=== PATIENT | female | born 1955 | race Caucasian/White ===

== ENCOUNTER 2022-01-29 15:51 | Emergency (ER) | payer OTHER, SELFPAY ==
[2022-01-29 16:00] VITALS: BP 127/70; PULSE 97; RESP 20; TEMP 37.2; O2SAT 98
--- NOTE | 2022-01-29 16:12 | ED.LOWEXIN ---
HPI - Extremity Injury (Lower) General Chief Complaint: Extremity Injury, Lower Stated Complaint: Hip and leg Pain Time Seen by Provider: 01/29/22 16:12 Source: patient and RN notes reviewed Mode of arrival: ambulatory Limitations: no limitations History of Present Illness HPI Narrative: 66-year-old female presents to the [facility] with complaints of right lower back pain that has been intermittent for the last 4 days. No treatment prior to arrival. States she has not appointment with her primary care doctor tomorrow but has no one to watch her mom. Patient denies any trauma. Pain is intermittent. Unable to reproduce pain with palpation. No midline tenderness. No loss retention of bowel or bladder. No abdominal tenderness. Patient is not wanting to take anything that will cause drowsiness because she has to care for her elderly mom day and night. Onset (ago): day(s) (4) Related Data Home Medications Medication Instructions Recorded Confirmed calcium carbonate 500 mg calcium 500 mg PO DAILY 07/29/19 01/29/22 (1,250 mg) chewable tablet loratadine 5 mg-pseudoephedrine ER 1 tablet PO Q12H 03/10/20 01/29/22 120 mg tablet,extended release,12hr (Claritin-D 12 Hour) Allergies Allergy/AdvReac Type Severity Reaction Status Date / Time hydrochlorothiazide Allergy Mild Itching Verified 01/29/22 15:56 lisinopril Allergy Mild Itching Verified 01/29/22 15:56 losartan Allergy Mild Hives Verified 01/29/22 15:56 alprazolam Allergy Unknown Unknown Verified 01/29/22 15:56 paroxetine Allergy Unknown Unknown Verified 01/29/22 15:56 Penicillins Allergy Unknown Unknown Verified 01/29/22 15:56 Sulfa (Sulfonamide Allergy Unknown Unknown Verified 01/29/22 15:56 Antibiotics) sulfamethizole Allergy Unknown Unknown Verified 01/29/22 15:56 trimethoprim Allergy Unknown Unknown Verified 01/29/22 15:56 cholecalciferol (vitamin D3) AdvReac Itching Verified 01/29/22 15:56 [From Vitamin D3] ENVIRONMENTAL ALLERGENS Allergy Unknown Unknown Uncoded 06/16/21 13:36 Review of Systems Review of Systems: All systems reviewed & are unremarkable except as noted in HPI and below Constitutional: Constitutional: Reports no additional constitutional complaints, Denies chills and Denies fever(s) Eyes: Eyes: Reports no additional eye complaints ENT: Reports system reviewed and no additional complaints, except as documented Cardiovascular: Cardiovascular: Reports no additional cardiovascular complaints Respiratory: Respiratory: Reports no additional respiratory complaints Gastrointestinal: Gastrointestinal: Reports no additional gastrointestinal complaints Musculoskeletal: Musculoskeletal: Reports as per HPI, Reports back pain (Right lower back/hip) and Denies joint swelling Integumentary/Breasts: Skin/Breast: Reports system reviewed and no additional complaints, except as docu Neurologic: Reports system reviewed and no additional complaints, except as documented Psychiatric: Psychiatric: Reports no additional psychiatric complaints Allergic/Immunologic: Allergic/Immunologic: Reports no additional allergic/immunologic complaints PMFSH Past Medical History Medical History CAD S/P percutaneous coronary angioplasty Diabetes mellitus Essential (primary) hypertension GERD (gastroesophageal reflux disease) Hematochezia Hyperlipidemia with target low density lipoprotein (LDL) cholesterol less than 130 mg/dL MRSA elsewhere/NOS Psoriasis Surgical History Surgical History H/O heart surgery 07/06/2019 Status post coronary artery stent placement Family History Family History Mother Family history of cardiovascular disease Patient's mother is in good health Family history of Alzheimer's disease Family history of congestive heart failure, Onset Age: 86 Father Family histo
== END 2022-01-29 16:35 | disposition home or self-care (01) ==
PROVIDERS: Emergency Provider Nurse Practitioner; PCP Internal Medicine
DX: M54.50 Low back pain, unspecified (principal); F17.210 Nicotine dependence, cigarettes, uncomplicated; Z95.5 Presence of coronary angioplasty implant and graft; E11.9 Type 2 diabetes mellitus without complications; I10 Essential (primary) hypertension; K21.9 Gastro-esophageal reflux disease without esophagitis; E78.5 Hyperlipidemia, unspecified; Z86.14 Personal history of Methicillin resistant Staphylococcus aureus infection
CPT/HCPCS: 99213; G0463

== ENCOUNTER 2022-06-07 12:58 | Outpatient (CLI) | payer OTHER, SELFPAY ==
--- NOTE | ~2022-06-07 | MR_ITS ---
EXAMINATION: MR lumbar spine wo con DATE: 06/07/2022 13:44 INDICATION: Lumbar radiculopathy TECHNIQUE: Magnetic resonance imaging (MRI) of the lumbar spine was performed without intravenous con trast. Sequences included sagittal T2-weighted FSE, sagittal T2-weighted FS FSE, sagittal T1-weighted FSE, and axial T2-weighted FSE. COMPARISON: None FINDINGS: 10 degrees lumbar levocurvature. L5 spondylolysis with bilateral pars intra-articular is defects and 9 mm anterolisthesis L5 on S1. Associated endplate remodeling with mild posterior vertebral body heig ht loss at L5. Remaining vertebral body heights are normal. Severe disc height loss at L5-S1. Moderat e to severe disc height loss at L2-L3. Mild disc height loss at L1-L2 and at the left side of L3-L4 a nd L4-L5. Fibrofatty degenerative endplate changes at L5-S1, L2-L3 and to lesser degree L1-L2. The co nus medullaris terminates at L2-L3. There is normal signal in the caudal spinal cord. Paravertebral s oft tissues are unremarkable. The following disc levels are specifically discussed: L1-L2: Moderate diffuse disc bulge. There is mild bilateral facet joint osteoarthritis. There is no n eural foraminal stenosis. There is mild central canal stenosis. L2-L3: Annular fissure with disc extrusion extending from foraminal zone to foraminal zone with dysmo tility extending a few millimeter cephalad and caudal to the level of the endplates. There is mild bi lateral facet joint osteoarthritis. There is mild bilateral neural foraminal stenosis. There is mild central canal stenosis. L3-L4: Disc is mildly bulging. There is mild bilateral facet joint osteoarthritis. There is mild bila teral neural foraminal stenosis. There is mild central canal stenosis. L4-L5: Disc is mildly bulging with annular fissure at the left foraminal zone. There is hypertrophy o f the ligamentum flavum. There is moderate bilateral facet joint osteoarthritis. There is mild bilat eral neural foraminal stenosis. There is mild central canal stenosis. L5-S1: Annular fissure and disc extrusion with disc material extending up to 5 mm cephalad to the lev el of the inferior endplate of L5. There is moderate right and mild to moderate left facet joint oste oarthritis in addition to the bilateral L5 pars intra-articular is defects. There is moderate to nagi re bilateral neural foraminal stenosis with deformation of the bilateral exiting L5 nerve roots. Ther e is no central canal stenosis. IMPRESSION: 1. Severe lumbar spondylosis most notable for L5 spondylolysis and 10 mm anterolisthesis on S1. Assoc iated moderate to severe bilateral L5-S1 neural foraminal stenosis with deformation of the bilateral exiting L5 nerve roots. Reviewed, dictated and finalized at location B. IMPRESSION: 1. Severe lumbar spondylosis most notable for L5 spondylolysis and 10 mm harjinder listhesis on S1. Associated moderate to severe bilateral L5-S1 neural foraminal stenosis with deformation of the bilateral exiting L5 nerve roots.
--- NOTE | 2022-06-07 13:00 | ECHO_ITS ---
Patient Info Name: Charissa Flor Age: 66 years : 1955 Gender: Female Ht: 66 in Wt: 183 lbs BSA: 1.99 m2 HR: 72 bpm BP: 126 / 80 mmHg Technical Quality: Good Exam Date: 06/07/2022 3:19 PM Exam Location: [facility] Patient Status: Outpatient Admit Date: 06/07/2022 Staff Ordering Physician: Skyler Quarles DO Gravity Prospector: Andrade Boothe RDCS Attending Provider: Skyler Quarles DO Referring Physician: Willam MICHELLE; Exam Type: CA echo doppler color flow Study Info Indications - unspecified atherosclerosis Complete two-dimensional, color flow and Doppler transthoracic echocardiogram is performed. Summary 1. Complete two-dimensional, color flow and Doppler transthoracic echocardiogram is performed. 2. Left ventricular chamber dimension is normal. 3. Left ventricular systolic function is normal, estimated at 60-65%. 4. The left ventricular diastolic function is grade I diastolic dysfunction. 5. E/e' 8 is minimally elevated. 6. Left atrial chamber dimension is mildly enlarged. Left Ventricle E/e' 8 is minimally elevated. Left ventricular chamber dimension is normal. Left ventricular systolic function is normal, estimated at 60-65%. The left ventricular diastolic function is grade I diastolic dysfunction. Right Ventricle Right ventricular systolic function is normal and with normal TAPSE 1.7 cm. Right ventricular chamber dimension is normal. Left Atria Left atrial chamber dimension is mildly enlarged. Right Atria Right atrial chamber dimension is normal. Aortic Valve The aortic valve is trileaflet. There is no aortic valve stenosis. There is no aortic valve regurgitation. Pulmonic Valve There is no pulmonic regurgitation. Mitral Valve There is no mitral valve stenosis. There is no mitral valve regurgitation. Tricuspid Valve There is no tricuspid valve regurgitation. Pericardium/Pleural There is no pericardial effusion. Inferior Vena Cava Normal inferior vena cava with >50% collapse upon inspiration consistent with normal right atrial pressure, 5 mmHg. Aorta The aortic root size at the sinus of Valsalva is normal. Left Ventricular Outflow Tract Name Value Normal LVOT 2D LVOT Diameter 1.8 cm LVOT Doppler LVOT Peak Gradient 5 mmHg LVOT Mean Gradient 2 mmHg LVOT VTI 23 cm LVOT VTI/AV VTI Ratio 0.8 LVOT Stroke Volume 56 ml LVOT CO 4.3 l/min LVOT CI 2.2 l/min/m2 Mitral Valve Name Value Normal MV Doppler MV Peak Gradient 2 mmHg MV Mean Gradient 1 mmHg MV Decel [place] 357 cm/s2 MV PHT
== END 2022-06-07 12:59 | disposition home or self-care (01) ==
PROVIDERS: PCP Internal Medicine; Visit Provider Internal Medicine Cardiovascular Disease
DX: M54.30 Sciatica, unspecified side (principal); I70.90 Unspecified atherosclerosis; M47.816 Spondylosis without myelopathy or radiculopathy, lumbar region; M43.18 Spondylolisthesis, sacral and sacrococcygeal region; M48.07 Spinal stenosis, lumbosacral region; I51.7 Cardiomegaly
CPT/HCPCS: 72148; 93306

== ENCOUNTER → 2022-09-18 10:44 | Outpatient (CLI) | payer SELFPAY ==
--- NOTE | ~2022-09-18 | XR_ITS ---
Left Hand Technique: PA, oblique, and lateral views were obtained. Clinical History: Lump second metacarpal Findings: No acute fracture or dislocation is seen. Osseous alignment is anatomic. Joint spaces are p reserved. Soft tissues are unremarkable. Impression: Unremarkable left hand. Reviewed, dictated and finalized at location . R RELATIONS MANAGER Impression: Unremarkable left hand.
== END ==
PROVIDERS: PCP Internal Medicine; Visit Provider Clinical Nurse Specialist
DX: R22.32 Localized swelling, mass and lump, left upper limb (principal)
CPT/HCPCS: 73130

== ENCOUNTER 2022-10-23 09:12 | Outpatient (CLI) | payer MEDICARE, MEDICAID, SELFPAY ==
--- NOTE | ~2022-10-23 | CT_ITS ---
Clinical Indication: Pulmonary nodule CT Scan of the Chest with Contrast: Technique: Contiguous sections were acquired throughout the chest after intravenous administration of 75 cc of Omnipaque 350. Dose reduction technique was used on this scan by utilizing automated exposu re control and iterative reconstruction technique. The dose-length product (DLP) was 251.15 mGy-cm. Findings: There is no evidence of any significant mediastinal, hilar or axillary lymphadenopathy. Patient is st atus post CABG. No aortic aneurysm. There is no evidence of pleural or pericardial effusion. There is minimal bibasilar pulmonary atelectasis or scarring. No other significant pulmonary abnormal ity seen. Images through the upper abdomen reveal no abnormalities. Impression: No significant pulmonary abnormality seen. Status post CABG. Reviewed, dictated and finalized at [facility]. OCKER Impression: No significant pulmonary abnormality seen. Status post CABG.
[2022-10-23 09:38] LABS: Estimated Glomerular Filt Rate > 60
== END 2022-10-23 09:13 | disposition home or self-care (01) ==
PROVIDERS: PCP Internal Medicine; Visit Provider Internal Medicine
DX: R91.1 Solitary pulmonary nodule (principal); Z95.1 Presence of aortocoronary bypass graft
CPT/HCPCS: 71260; Q9967